=== PATIENT | female | born 1935 | race Hispanic/Latino ===

== ENCOUNTER → 2018-05-18 | Outpatient (CLI) | payer MEDICARE ==
[~2018-05-18] MED LIST: AMLO10TA6 PO; CHOL500050 PO; FURO-152 PO; LEVO150T11 PO; LOSA100T20 PO; NITR.4P TD; POTASSIUM PO
== END | disposition home or self-care (01) ==
LOC: RAH 10:00
PROVIDERS: ATTEND Thoracic Surgery (Cardiothoracic Vascular Surgery)
DX: I08.0 Rheumatic disorders of both mitral and aortic valves (principal)
CPT/HCPCS: 93306